=== PATIENT | male | born 1955 | race Caucasian/White ===

== ENCOUNTER 2023-05-26 18:34 | Emergency (ER) | payer MEDICAID, SELFPAY ==
[2023-05-26 18:44] VITALS: BP 170/79; PULSE 69; RESP 16; TEMP 36.6; O2SAT 97; BMI 34.4
== END 2023-05-26 19:12 | disposition left against medical advice (07) ==
PROVIDERS: Emergency Provider Family Medicine Addiction Medicine; Family Provider Internal Medicine Geriatric Medicine; PCP Internal Medicine Geriatric Medicine
CPT/HCPCS: 99281